=== PATIENT | female | born 1955 | race Two or more races ===

== ENCOUNTER 2024-11-13 09:00 | Day surgery (SDC) | payer OTHER ==
[2024-11-13] MEDS ORDERED: fentaNYL CITRATE 50 MCG/ML AMPUL IV PUSH ONE (13:00)
[2024-11-13] MEDS ORDERED: DIPHENHYDRAMINE HCL 50 MG/ML VIAL 1ML IV ONE (13:00)
[2024-11-13] MEDS ORDERED: ONDANSETRON HCL 2 MG/ML VIAL IV ONE (13:00)
[2024-11-13] MEDS ORDERED: MIDAZOLAM HCL 2 MG/2 ML VIAL IV ONE (13:00)
== END 2024-11-13 14:25 | disposition home or self-care (01) ==
LOC: AMB-ENDOS 09:00
PROVIDERS: ATTEND Colon & Rectal Surgery
DX: D12.2 Benign neoplasm of ascending colon (principal); K63.5 Polyp of colon; K62.1 Rectal polyp; K57.30 Diverticulosis of large intestine without perforation or abscess without bleeding

== ENCOUNTER 2025-01-24 09:15 | Inpatient (IN) | payer OTHER ==
[~2025-01-24] VITALS: Ht 157.5 cm; Wt 77.1 kg
[2025-01-24] MEDS ORDERED: TOPROL XL100 M1 PO (11:33)
[2025-01-24] MEDS ORDERED: IRBESARTAN300 MG PO (11:33)
[2025-01-24] MEDS ORDERED: METFORMIN HCL500 M3 PO (11:33)
[2025-01-24 11:34] VITALS: BP 160/92
[2025-01-24] MEDS ORDERED: LOVASTATIN20 MG PO (11:34)
[2025-01-31] MEDS ORDERED: CEFTRIAXONE SODIUM 2,000 MG VIAL ONE (11:00)
[2025-01-31] MEDS ORDERED: METRONIDAZOLE/SODIUM CHLORIDE 500 MG/100 ML PIGGYBACK IV ONE (11:00)
[2025-01-31] MEDS ORDERED: SUGAMMADEX SODIUM 200 MG/2 ML VIAL IV ONE (13:48)
[2025-01-31] MEDS ORDERED: LIDOCAINE HCL 1%/EPINEPHRINE 20ML VIAL IJ ONE (13:49)
[2025-01-31] MEDS ORDERED: BUPIVACAINE HCL/MPF 0.5% 30ML VIAL ONE (13:49)
[2025-01-31] MEDS ORDERED: DEXTROSE 50 % IN WATER 0.5 G/ML DISP.SYRIN IV PRN (15:30)
[2025-01-31] MEDS ORDERED: ONDANSETRON HCL 2 MG/ML VIAL IV PRN (15:30)
[2025-01-31] MEDS ORDERED: RINGERS SOLUTION,LACTATED 1,000 ML IV SCH (15:30)
[2025-01-31] MEDS ORDERED: MORPHINE SULFATE 4 MG/ML CARTRIDGE IV PRN (15:45)
[2025-01-31] MEDS ORDERED: OxyCODONE HCL 5 MG TABLET (ROXICODONE) PO PRN (15:45)
[2025-01-31] MEDS ORDERED: GABAPENTIN 300 MG CAPSULE PO SCH ×2 (17:00)
[2025-01-31] MEDS ORDERED: METOPROLOL SUCCINATE 100 MG TAB.SR.24H PO SCH (17:00)
[2025-01-31] MEDS ORDERED: POLYETHYLENE GLYCOL 3350 17 GM BLIST.PACK PO SCH (17:00)
[2025-01-31] MEDS ORDERED: HYOSCYAMINE SULFATE 0.125 MG TAB.SUBL SL SCH (17:00)
[2025-01-31] MEDS ORDERED: ACETAMINOPHEN 500 MG GEL..CAP PO SCH (18:00)
[2025-01-31 18:44] LABS: BASO % 0.2 % (0.1-1.2); EOS # 0.00 (0.04-0.54); EOS % 0.0 % (0.7-7.0); LYMPH # 0.92 (1.18-3.74); LYMPH % 5.5 % (19.3-53.1); MEAN PLATELET VOLUME 11.10 fl (9.4-12.4); MONO # 0.73 (0.24-0.82); MONO % 4.4 % (4.7-12.5); NEUT # 14.84 (1.56-6.13); NEUT % 89.3 % (34.0-71.1); RED CELL DISTRIBUTION WIDTH 12.8 % (11.6-14.4)
[2025-01-31 19:13] LABS: BUN CREA RATIO 8.0 (7.0-25.0); CREATININE SERUM 0.92 mg/dL (0.55-1.02); GFR 60.89; GLUCOSE FASTING 165.0 mg/dL (65-100); OSMOLALITY SERUM 283.0 MOSM/KG (275-295)
[2025-02-01 00:30] VITALS: BP 134/76; O2SAT 98
[2025-02-01 08:09] VITALS: BP 152/79; O2SAT 95
[2025-02-01 08:31] LABS: BASO % 0.2 % (0.1-1.2); EOS # 0.06 (0.04-0.54); EOS % 0.5 % (0.7-7.0); LYMPH # 1.80 (1.18-3.74); LYMPH % 14.8 % (19.3-53.1); MEAN PLATELET VOLUME 12.00 fl (9.4-12.4); MONO # 0.79 (0.24-0.82); MONO % 6.5 % (4.7-12.5); NEUT # 9.41 (1.56-6.13); NEUT % 77.7 % (34.0-71.1); RED CELL DISTRIBUTION WIDTH 13.2 % (11.6-14.4)
[2025-02-01] MEDS ORDERED: IRBESARTAN 300 MG TABLET PO SCH (09:00)
[2025-02-01] MEDS ORDERED: MAGNESIUM CHLORIDE 70 MG TABLET.DR PO SCH (09:00)
[2025-02-01] MEDS ORDERED: PANTOPRAZOLE SODIUM 40 MG/VIAL VIAL IV SCH (09:00)
[2025-02-01] MEDS ORDERED: LACTOBACILLUS ACIDOPHILUS 1 CAP CAP PO SCH (09:00)
[2025-02-01 09:12] LABS: BUN CREA RATIO 10.0 (7.0-25.0); CREATININE SERUM 0.69 mg/dL (0.55-1.02); GFR 84.86; GLUCOSE FASTING 104.0 mg/dL (65-100); OSMOLALITY SERUM 274.0 MOSM/KG (275-295)
[2025-02-01 16:00] VITALS: BP 138/78; O2SAT 99
[2025-02-01] MEDS ORDERED: POTASSIUM CHLORIDE IN WATER 100 ML IV NR (16:00)
[2025-02-01] MEDS ORDERED: ENOXAPARIN SODIUM 40 MG/0.4 ML SYRINGE SUBCUTANEO SCH (17:00)
[2025-02-02 00:54] VITALS: BP 133/82; O2SAT 98
[2025-02-02 08:05] VITALS: BP 168/93; O2SAT 99
[2025-02-02] MEDS ORDERED: OxyCODONE HCL 5 MG TABLET (ROXICODONE) PO STA (11:17)
== END 2025-02-02 15:13 | disposition home or self-care (01) | DRG 331 ==
LOC: ADM 09:15 → EDSTATUS 09:15 → SURH 01-31 09:15 → O/R 01-31 10:00 → SURH 01-31 10:00
PROVIDERS: ADMIT Colon & Rectal Surgery; ATTEND Colon & Rectal Surgery
PROC: 0DBH4ZZ Excision of Cecum, Percutaneous Endoscopic Approach (ICD-10-PCS; principal; 2025-01-31 12:30)
DX: K63.5 Polyp of colon (principal); D49.0 Neoplasm of unspecified behavior of digestive system

== ENCOUNTER 2025-01-24 10:27 | Outpatient (CLI) | payer OTHER ==
[2025-01-24] MEDS ORDERED: TOPROL XL100 M1 PO (11:33)
[2025-01-24] MEDS ORDERED: IRBESARTAN300 MG PO (11:33)
[2025-01-24] MEDS ORDERED: METFORMIN HCL500 M3 PO (11:33)
[2025-01-24] MEDS ORDERED: LOVASTATIN20 MG PO (11:34)
[2025-01-24 11:36] LABS: URINE APPEARANCE Cloudy; URINE BILIRRUBIN Negative (NEGATIVE); URINE BLOOD Negative; URINE COLOR Yellow; URINE GLUCOSE Negative (NEGATIVE); URINE KETONE Negative (NEGATIVE); URINE LEUKOCYTE Small; URINE NITRATE Negative; URINE PROTEIN Negative (NEGATIVE); URINE UROBILINOGEN 0.2 E.U./dl
[2025-01-24 11:40] LABS: URINE BACTERIA 7887.4 uL (0.0-1933); URINE RBC 5.2 uL (0.0-20.8); URINE WBC 138.9 uL (0.0-23.2)
[2025-01-24 11:45] LABS: BASO % 0.6 % (0.1-1.2); EOS # 0.12 (0.04-0.54); EOS % 1.2 % (0.7-7.0); LYMPH # 2.14 (1.18-3.74); LYMPH % 21.4 % (19.3-53.1); MEAN PLATELET VOLUME 10.60 fl (9.4-12.4); MONO # 0.67 (0.24-0.82); MONO % 6.7 % (4.7-12.5); NEUT # 6.98 (1.56-6.13); NEUT % 69.8 % (34.0-71.1); RED CELL DISTRIBUTION WIDTH 12.8 % (11.6-14.4)
[2025-01-24 12:18] LABS: INR 1.04; URINE CAST 0.14 uL (0.0-1.40); URINE CRYSTALS FEW /HPF; URINE EPITHELIAL CELLS > 201.7 uL (0.0-38.8)
[2025-01-24 12:34] LABS: ALT/SGPT 37.0 U/L (12-78); AST/SGOT 27.0 U/L (15-37); BILIRUBIN TOTAL 0.65 mg/dL (0.3-1.2); BUN CREA RATIO 13.0 (7.0-25.0); CREATININE SERUM 0.72 mg/dL (0.55-1.02); GFR 80.79; GLOBULINA 3.8 G/DL (2.4-3.5); GLUCOSE FASTING 112.0 mg/dL (65-100); OSMOLALITY SERUM 275.0 MOSM/KG (275-295)
== END 2025-01-24 10:40 | disposition home or self-care (01) ==
LOC: RAD 10:27
PROVIDERS: ATTEND Colon & Rectal Surgery
DX: K59.00 Constipation, unspecified (principal); N39.0 Urinary tract infection, site not specified; K62.5 Hemorrhage of anus and rectum; D59.8 Other acquired hemolytic anemias; E11.9 Type 2 diabetes mellitus without complications; E78.2 Mixed hyperlipidemia; K63.5 Polyp of colon; Z11.59 Encounter for screening for other viral diseases; Z20.828 Contact with and (suspected) exposure to other viral communicable diseases; D68.9 Coagulation defect, unspecified; D23.5 Other benign neoplasm of skin of trunk; K60.1 Chronic anal fissure; N64.4 Mastodynia; E55.9 Vitamin D deficiency, unspecified